=== PATIENT | female | born 1985 | race Caucasian/White ===

== ENCOUNTER 2018-05-02 22:41 | Emergency (ER) | payer OTHER, SELFPAY ==
[2018-05-02 22:53] VITALS: BP 104/63; PULSE 65; RESP 19; TEMP 36.6; O2SAT 97; BMI 20.7
--- NOTE | 2018-05-02 23:12 | ED_ITS ---
HPI - Abdominal Pain General Chief Complaint: Abdominal Pain Stated Complaint: SHARP ABDOMINAL PAIN Time Seen by Provider: 05/02/18 23:12 Source: patient Mode of arrival: ambulatory Limitations: no limitations History of Present Illness HPI narrative: Otherwise healthy 32-year-old female here for evaluation of left-sided adnexal tenderness. She states that it is a sharp tenderness. Started today. She is on her menstrual cycle. She is normally fairly regular on her menstrual cycles. Is not on control. No prior abdominal surgeries. No urinary symptoms. No back pain. No nausea or vomiting. Related Data Allergies Allergy/AdvReac Type Severity Reaction Status Date / Time ciprofloxacin [From Cipro] Allergy Verified 03/19/18 13:40 Review of Systems Constitutional Denies fever(s) Cardiovascular Denies chest pain and Denies dyspnea Respiratory Denies dyspnea Gastrointestinal Gastrointestinal: Reports abdominal pain, Denies cramping, Denies nausea and Denies vomiting Genitourinary Comments: Vaginal bleeding Musculoskeletal Denies myalgias and Denies arthralgias Integumentary/Breasts Denies rash Hematologic/Lymphatic Denies easy bleeding and Denies easy bruising PFSH Medical History Healthy adult (Acute) Social History Smoking Status: Never smoker Social History Smoking Status: Never smoker Exam Initial Vital Signs Initial Vital Signs: Vital Signs Temperature 97.8 F 05/02/18 22:53 Pulse Rate 65 05/02/18 22:53 Respiratory Rate 19 05/02/18 22:53 Blood Pressure 104/63 05/02/18 22:53 Pulse Oximetry 97 05/02/18 22:53 Const General: cooperative, healthy appearing, comfortable, well developed, well groomed and No acute distress Orientation: alert, awake and oriented x3 Resp Effort & Inspection: normal respiratory effort Cardio Rhythm: regular rhythm GI Inspection: non-distended Palpation: soft, No firm and tender ( left adnexa) Skin Lesions: no lesions Rashes: no rashes Neuro General: alert, awake and oriented x3 Extrem General: normal to inspection and capillary refill normal Psych Appearance: grossly normal and well kempt Course Orders Ordered: ED Orders 05/02/18 23:27 US pelvic complete Stat Vital Signs - 8 hr 05/02/18 22:53 05/03/18 01:19 Temperature 97.8 F 97.9 F Pulse Rate 65 68 Respiratory Rate 19 18 Blood Pressure 104/63 100/70 Pulse Oximetry 97 99 MDM - Abdominal Pain Lab Data Attestation: I reviewed the patient's lab results. Point of care testing: Point of Care Testing Test Results Negative Urine Dip Bedside Urine Glucose Negative Bedside Urine Bilirubin - Negative Bedside Urine Ketone - Negative Urine Specific [place] 1.020 Bedside Urine Occult Blood - Negative Bedside Urine pH 6.0 Bedside Urine Protein - Negative Bedside Urine Urobilinogen - Negative Bedside Urine Nitrite - Negative Bedside Urine Leukocytes - Negative Esterase Imaging Data pelvic ultrasound: Radiologist's impression: no significant abnormalities renal ultrasound, no significant abnormalities [facility] Narrative Medical decision making narrative: patient's urine is unremarkable. Pelvic ultrasound unremarkable. test was negative. Has a benign abdominal exam. Will hold on further workup for now. We did discuss return precautions. The patient and expressed understanding and agreement with plan. Discharge Plan Departure Patient Disposition: Home Clinical Impression: Abdominal pain Qualifiers: Abdominal location: left lower quadrant Qualified Code(s): R10.32 - Left lower quadrant pain Discharge Date/Time: 05/03/18 01:20 Interventions: ED Discharge Assessment Last Done: 05/03/18 01:19 Instructions: DI for Abdominal Pain-Adult Activity Restrictions/Additional Instructions: return to the emergency department for any new symptoms to include worsening pain, fevers, change in location of the pain, inability to urinate, or any other concerning symptoms.
--- NOTE | 2018-05-02 23:27 | DI.US.S_ITS ---
PROCEDURE: US PELVIC COMPLETE INDICATIONS: LEFT ADNEXAL PAIN TECHNIQUE: Real-time scanning was performed of the pelvic organs, with image documentation. Additional endovaginal scanning was necessary due to incomplete visualization of the adnexal and endometrial structures by transabdominal scanning. COMPARISON: None. FINDINGS: Transabdominal scanning: Limited scanning through the kidneys shows no hydronephrosis. No pathologic free abdominal or pelvic fluid. Endovaginal scanning: Uterus: Uterus is normal in size at 7.0 x 3.0 x 4.9 cm. The endometrium measures 1.5 mm in combined thickness. Uterine echotexture is normal. Ovaries: Right adnexa measures 3.1 x 1.4 x 1.4 cm. Left adnexa measures 2.4 x 1.5 x 1.4 cm. Adnexa are sonographically normal. Doppler evaluation demonstrates normal vascular flow in the adnexa. IMPRESSION: 1. Uterus is sonographically normal. 2. Adnexa are sonographically normal. Dictated by: Nenita Eugene MD, PhD on 05/03/2018 at 7:48 Approved by: Nenita Eugene MD, PhD on 05/03/2018 at 7:49
--- NOTE | 2018-05-02 23:29 | PC.NURSE ---
Pt O2 sat mid 80's on RA, states has home O2 but does not need to use it, placed on 2L NC sat 94%. Dr. Ford aware.
[2018-05-03 01:19] VITALS: BP 100/70; PULSE 68; RESP 18; TEMP 36.6; O2SAT 99
== END 2018-05-03 01:20 | disposition home or self-care (01) ==
PROVIDERS: Emergency Provider Emergency Medicine
DX: R10.32 Left lower quadrant pain (principal)
CPT/HCPCS: 76830; 76856; 81003; 81025; 99282; 99283